=== PATIENT | female | born 1985 | race Asian ===

== ENCOUNTER 2019-03-28 23:15 | Emergency (ER) | payer SELFPAY ==
[~2019-03-28] VITALS: Ht 167.6 cm; Wt 69.0 kg
[2019-03-29] MEDS ORDERED: LIDOCAINE HCL/PF 1% 10 MG/ML 5ML VIAL IJ ONE (00:45)
[2019-03-29] MEDS ORDERED: TETANUS, DIPHTHERIA, PERTUSSIS VAC/PF 0.5ML (>7YR OLD) IM ONE (00:45)
[2019-03-29] MEDS ORDERED: IBUPROFEN 800MG TABLET PO ONE (00:45)
[2019-03-29] MEDS ORDERED: BACITRACIN ZINC OINT UDPKT TOP ONE (00:45)
[2019-03-29 02:17] VITALS: BP 135/89
== END 2019-03-29 02:17 | disposition home or self-care (01) ==
LOC: ER 23:15
DX: S61.412A Laceration without foreign body of left hand, initial encounter (principal); Y93.89 Activity, other specified; Y92.9 Unspecified place or not applicable
CPT/HCPCS: 12001; 73130; 90471; 90715; 99283; J3490